=== PATIENT | female | born 1955 | race Caucasian/White ===

== ENCOUNTER → 2016-10-03 | Day surgery (SDC) | payer OTHER, MEDICARE ==
[~2016-10-03] VITALS: Ht 172.7 cm; Wt 95.3 kg
[~2016-10-03] MED LIST: ACETAMINOPHEN PO; AMOX-CLAV 500-1 EACH PO; AUGMENTIN 875875 MG PO; BACLOFEN10 M1 PO; CIPRO500 M1 PO; COLACE100 M1 PO; COUMADIN 2.5 M2.5 MG PO; COUMADIN 7.5 M7.5 MG PO; DOCUSATE SODIU100 MG PO; FLUOXETINE HCL40 M1 PO; LOVENOX 6060 MG/0.6 SC; MASON NATURAL2000 IU PO; MIRALAX17 GM PO; SENNA8.6 M3 PO; SENOKOT8.6 MG PO; TEGRETOL200 M1 PO; TIZANIDINE HCL2 MG PO; VITAMIN B-12500 MC2 PO; VITAMIN B12 PO; VITAMIN D35000 UNIT PO; WARFARIN SODIUM10 MG PO; WARFARIN SODIUM5 M1 PO; ZANAFLEX2 M2 PO; [UNRECOGNIZED DRUG - OTHER] PO
--- NOTE | 2016-10-03 12:46 | Operative Report ---
Operative/Inv Procedure Report Surgery Date: 10/03/16 Name of Procedure: Cystoscopy laser lithotripsy of very large bladder stone, or change of right double-J ureteral stent Pre-Operative Diagnosis: Right hydronephrosis and bladder stone Post-Operative Diagnosis: Same Estimated Blood Loss: scant Surgeon/Garage Door Opener Installer: Dami ASTORGA,CAMPOS Gallo Anesthesia: laryngeal mask airway Drains: 26 cm 6 Turkmen right double-J ureteral stent, 20 Turkmen Pratt Specimens: Urine culture and multiple bladder stone fragments Complications: None Condition: Fair Operative Indication: Right hydronephrosis and not a candidate for definitive surgery for removal of upper tract urinary stones Operative/Procedure Note Note: The patient was taken to the cystoscopy room and identified. She was placed in the supine position on the operating table. A timeout was executed appropriately with the patient awake. Gen. anesthesia was then induced via LMA. Due to severe lower extremity contractures it was very difficult to place her in a somewhat modified dorsal lithotomy position. She was prepped and draped in usual fashion for cystoscopy. Surgical pause was executed appropriately. Fluoroscopy images taken with a marker in the right side of the abdomen to confirm the correct side of surgery as well as the correct orientation of the fluoroscopy image. Under manual guidance 22 Turkmen cystoscope sheath was placed into the bladder. The large stone was seen on the distal coil of the ureteral stent. Using 1000 holmium laser fiber the stone was fragmented into multiple fragments. This was a fairly extensive procedure. The [employer] evacuator was used to remove all stone fragments from the bladder. A guidewire was then placed adjacent to the right ureteral stent up the level of the kidney. Using a grasper the right ureteral stent was removed. Open-ended catheter was placed over the wire and the wire removed. Some contrast was injected to outline the right renal collecting system. The guidewire was placed back through the open- ended catheter which was removed. Under visual fluoroscopic control a 26 cm 6 Turkmen right double-J ureteral stent was placed. Fluoroscopy confirmed the proximal and coiled in the kidney and the distal end coiled in the bladder. Pratt catheter was then placed. The patient tolerated the procedure well and as completion was taken to recovery room in stable condition. Findings: Right hydronephrosis and large bladder calculus Discharge Disposition: PACU
--- NOTE | 2016-10-03 17:15 | RADIOLOGY REPORT ---
EXAMINATION: XR KIDNEYS, URETER, BLADDER CLINICAL INDICATION: Right ureteral stent replacement. COMPARISON: 12/21/2015 TECHNIQUE: Fluoroscopic imaging of the abdomen was utilized by Dr. Andersen. 2 spot fluoroscopy images of the right abdomen are submitted into the electronic picture archive. FLUOROSCOPY TIME: 5.2 seconds FINDINGS: Please refer to the operative report. The right ureteral stent is in its expected position. IMPRESSION: Intraoperative fluoroscopic imaging of the abdomen was utilized.
== END ==
LOC: STS 05:29
DX: N21.0 Calculus in bladder (principal); N13.30 Unspecified hydronephrosis; G35 Multiple sclerosis; Z86.711 Personal history of pulmonary embolism; Z79.01 Long term (current) use of anticoagulants
CPT/HCPCS: 74000; 82355; 87086; 93005; 93010; C2617; J0690; J2250

== ENCOUNTER 2016-10-04 13:02 | Inpatient (IN) | payer OTHER, MEDICARE ==
[~2016-10-04] VITALS: Ht 172.7 cm; Wt 83.9 kg
[~2016-10-04 13:02] MED LIST changes: -AMOX-CLAV 500-1 EACH PO; -CIPRO500 M1 PO; -COLACE100 M1 PO; -SENNA8.6 M3 PO; -WARFARIN SODIUM5 M1 PO; -ZANAFLEX2 M2 PO
--- NOTE | 2016-10-04 13:11 | ED GENERAL ADULT ---
History of Present Illness General Chief Complaint: Nausea, Vomiting, Diarrhea Stated Complaint: BIBA N/V ? FEBRILE Source: patient, family Exam Limitations: poor historian Vital Signs & Intake/Output Vital Signs & Intake/Output Vital Signs Date Time Temp Pulse Resp B/P Pulse O2 O2 Flow FiO2 Ox Delivery Rate 10/04 1914 99.2 102 18 128/52 95 Nasal 4.0L Cannula 10/04 1759 100.0 10/04 1654 100.4 111 18 100/59 95 Nasal 4.0L Cannula 10/04 1616 101.1 113 22 97/54 96 Nasal 5.0L Cannula 10/04 1525 101.6 10/04 1506 101.6 125 20 100/74 94 10/04 1304 101.1 129 28 125/69 89 Nasal 5.0L Cannula Allergies Coded Allergies: No Known Allergies (09/27/16) Reconcile Medications Amoxicillin/Potassium Clav (Amox-Clav 500-125 MG Tablet) 500 MG-125 MG TABLET 1 TAB PO BID ANTIBIOTIC, INFECTION (Reported) Baclofen 10 MG TABLET 2 TAB PO TID MS (Reported) Carbamazepine (Tegretol) 200 MG TABLET 1 TAB PO 4 TIMES/DAY MS (Reported) Cholecalciferol (Vitamin D3) (Vitamin D3) 5,000 UNIT CAPSULE 1 CAP PO DAILY SUPPLEMENT (Reported) Cyanocobalamin (Vitamin B-12) (Vitamin B-12) 500 MCG TABLET 1 TAB PO DAILY SUPPLEMENT (Reported) Docusate Sodium (Colace) 100 MG CAPSULE 1 CAP PO TID CONSTIPATION (Reported) Fluoxetine HCl 40 MG CAPSULE 1 CAP PO QAM DEPRESSION (Reported) Sennosides (Senna) 8.6 MG TABLET 2 TAB PO BID CONSTIPATION (Reported) Tizanidine HCl (Zanaflex) 2 MG CAPSULE 1 TAB PO Q8 MS (Reported) Warfarin Sodium 5 MG TABLET 1-2 TAB PO 1700 BLOOD THINNER (Reported) Triage Nurses Notes Reviewed? yes Onset: Abrupt Duration: day(s): Timing: recent history HPI: 10/04/16 3 PM This is a 61-year-old female presents to the emergency department for fever and weakness and vomiting. She status post lithotripsy by Dr. Andersen yesterday. Now she presents with fever and lethargy. She has a past medical history of multiple sclerosis and she is unable to move her lower extremities. On physical exam her abdomen is soft and nontender, lungs reveal poor air entry. Labs were sent and IV fluids are given an IV Tylenol were given. I paged Dr. Andersen and discussed her case. Past History Travel History Traveled to [place] past 21 day No Medical History Any Pertinent Medical History? see below for history Neurological: multiple sclerosis EENT: NONE Cardiovascular: NONE Respiratory: pulmonary embolism Gastrointestinal: NONE Hepatic: NONE Renal: nephrolithiasis Musculoskeletal: NONE Psychiatric: depression Endocrine: NONE Blood Disorders: PE Cancer(s): NONE FIELD CAPTAIN/Reproductive: NONE Influenza Vaccine: 05/24/14 Surgical History Surgical History: lithotripsy Psychosocial History Who do you live with Spouse Services at Home Home Health Aide What is your primary language Kosovan Family History Family History, If Any: No Known Family History. Hx Contributory? No Review of Systems Review of Systems Constitutional: Reports: fever. EENTM: Reports: no symptoms. Respiratory: Denies: short of breath. Cardiovascular: Denies: chest pain. GI: Denies: abdominal pain. Genitourinary: Reports: see HPI. Musculoskeletal: Reports: see HPI. Skin: Denies: rash. Neurological/Psychological: Reports: weakness. Hematologic/Endocrine: Reports: no symptoms. Physical Exam Physical Exam General Appearance: awake, anxious, moderate distress Head: atraumatic, normal appearance Eyes: Bilateral: PERRL, EOMI. Ears, Nose, Throat: dry mucous membranes Neck: supple, full range of motion Respiratory: decreased breath sounds Cardiovascular: regular rate/rhythm Peripheral Pulses: 4+ radial (R), 4+ radial (L) Gastrointestinal: soft, non-tender Back: decreased range of motion Extremities: pedal edema, contractures lower extremities Neurologic/Psych: paralysis to the lower extremities Skin: intact, normal color, diaphoresis Core Measures ACS in differential dx? No CVA/TIA Diagnosis: No Severe Sepsis Present: No Septic Shock Present: No Progress Differential Diagnoses I considered the following diagnoses in my evaluation of the patient: [ Pyelonephritis, pneumonia, sepsis] Plan of Care: Orders Procedure Date/time Status Clear Liquid Diet 10/05 B Active Saline Lock 10/05 2035 Active Pathway - chart 10/05 2035 Active House Staff 10/05 2035 Active Patient Data 10/04 2018 Active ED Holding Orders 10/04 1818 Active Admit to inpatient 10/04 1816 Active Vital Signs 10/04 1816 Active Code Status 03/28 1817 Active Add-on Test (ER Only) 10/04 1525 Active CULTURE,URINE 10/04 1451 Active BLOOD CULTURE 10/04 1451 Active URINALYSIS 10/04 1451 Complete LACTIC ACID 10/04 1451 Complete COMPREHENSIVE METABOLIC PANEL 10/04 1451 Complete CBC WITHOUT DIFFERENTIAL 10/04 1451 Complete Intake & Output 10/04 1340 Active VTE Mechanical Prophylaxis 10/04 UNK Active Heat/Cold Therapy 10/04 UNK Active Current Medications Sig/Jonathan Start time Last Medication Dose Stop Time Status Admin Acetaminophen 650 MG Q6P PRN 10/04 2044 AC (Tylenol) Diphenhydramine HCl 25 MG Q6P PRN 10/04 2044 AC (Benadryl) Hydromorphone HCl 0.5 MG Q4P PRN 10/04 2044 AC (Dilaudid) Ondansetron HCl 4 MG Q6P PRN 10/04 2044 AC (Zofran) Oxycodone HCl 5 MG Q6H PRN 10/04 2044 AC (Roxicodone) Sodium Chloride 1,000 ML .Q6H40M 10/04 2044 AC (Normal Saline 0.9%) Laboratory Tests 10/04/16 1557: Urinalysis MOD H, Urine Color BROWN H, Urine Clarity TURBD H, Urine pH 6.0, Ur Specific [place] >= 1.030, Urine Protein >=300 H, Urine Ketones TRACE H, Urine Nitrite POS H, Urine Bilirubin NEG@ICTO, Urine Urobilinogen 0.2, Ur Leukocyte Esterase MOD H, Ur Microscopic SEDIMENT EXAMINED, Urine RBC 5-10 H, Urine WBC > 75 H, Ur Epithelial Cells FEW, Urine Bacteria MANY H, Urine Hemoglobin LARGE H, Urine Glucose NEG 10/04/16 1520: Anion Gap 11, Estimated GFR > 60, BUN/Creatinine Ratio 15.0, Glucose 151 H, Lactic Acid 1.3, Calcium 8.3 L, Total Bilirubin 0.6, AST 41 H, ALT 34, Alkaline Phosphatase 140 H, Total Protein 6.1 L, Albumin 3.4 L, Globulin 2.7, Albumin/Globulin Ratio 1.3, CBC w Diff NO MAN DIFF REQ, RBC 4.48, MCV 84.3, MCH 27.7, RDW 14.3, MPV 7.4, Gran % 89.6 H, Lymphocytes % 3.5 L, Monocytes % 6.5, Eosinophils % 0.1, Basophils % 0.3, Absolute Granulocytes 14.3 H, Absolute Lymphocytes 0.6 L, Absolute Monocytes 1.0 H, Absolute Eosinophils 0, Absolute Basophils 0.1, PUBS MCHC 32.9 L Microbiology 10/04 1557 URINE ROUT: Urine Culture - RECD 10/04 1525 BLOOD: Blood Culture - RECD 10/04 1520 BLOOD: Blood Culture - RECD Initial ED EKG: none Departure Departure Disposition: STILL A PATIENT Condition: Stable Clinical Impression Primary Impression: Pyelonephritis Referrals: SERVANDO SHOEMAKER MD (PCP/Family) Departure Forms: Customer Survey General Discharge Information Comments The patient's labs revealed leukocytosis, she has fever and pyuria-she was admitted to the hospital for pyelonephritis. She received IV fluids and IV Rocephin. Admission Note Spoke With: VIKY MAURICE MD Documentation of Exam: Documentation of any treatments & extenuating circumstances including Concerns Regarding Discharge (functional status, medication knowledge or non-compliance, living conditions, etc.) that warrant an admission rather than observation: [The patient needs admission for IV antibiotics, IV fluids, urology consultation. I spoke with Ganesh Dong; he will see the patient in the morning IV Rocephin was given] Critical Care Note Critical Care Note Critical Care Time: non-applicable
[2016-10-04] MEDS ORDERED: ZANAFLEX2 M2 PO (14:01)
[2016-10-04] MEDS ORDERED: WARFARIN SODIUM5 M1 PO (14:03)
[2016-10-04] MEDS ORDERED: AMOX-CLAV 500-1 EACH PO (14:03)
[2016-10-04] MEDS ORDERED: COLACE100 M1 PO (14:05)
[2016-10-04] MEDS ORDERED: SENNA8.6 M3 PO (14:05)
--- NOTE | 2016-10-04 15:10 | NUR ---
PT BIBO, A&OX3, ON 5L NC, TACHYCARDIC 120, FEBRILE 101.2, TACHIPNIC 28 RR. PT HAS MS AND LEGS WILL NOT STRAIGHTED. CC N,V, FEBRILE, S/P KIDNEY STENT AND STONE REMOVAL, SURGICAL SARMIENTO STILL IN PLACE. OUTPUT IS ORANGE IN COLOR AND VERY SEDEMENTED. *NOTE BY SUSANNAH KRAUSE
--- NOTE | 2016-10-04 15:29 | NUR ---
PT NOTED TO BE VERY WARM TO TOUCH AND TEMP 101.6 UPON INTRODUCING SELF TO PATIENT. NO ACTIVE VOMITING, STATES LAST VOMITED YESTERDAY AND BM YESTERDAY AN NORMAL. LIPS DRY AND MUCOUS MEMBRANES DRY. DENIES PAIN. APPEARS STIFF AND CONTRACTED WITH HX MS. SINUS TACH 120'S ON CM, DENIES CHEST PAIN OR SOB. TACHYPNIC ON ARRIVAL, O2 SAT 90% ROOM AIR FOR THIS RN AND IMPROVED TO 95% 4LNC. DRY NONPRODUCTIVE NOTED. AAOX3. 18G IV ESTABLISHED ON THIS RN ARRIVAL, LABS DRAWN AND SENT (BLUE, SST X2, LAV, ELENA, PINK) AND CULTURES X1 SET. SECOND SET BY SUSANNAH KRAUSE.
[2016-10-04 15:35] LABS: ABSOLUTE BASOPHIL COUNT 0.1 /CUMM (0.0-0.2); ABSOLUTE EOSINOPHIL COUNT 0 /CUMM (0.0-0.7); ABSOLUTE GRANULOCYTE CT 14.3 /CUMM (1.4-6.5); ABSOLUTE LYMPH COUNT 0.6 /CUMM (1.2-3.4); BASOPHIL % 0.3 % (0.0-2.0); EOSINOPHIL % 0.1 % (0-5); HEMATOCRIT 37.8 % (37-47); MEAN CORPUSCULAR HGB 27.7 PG (27.0-31.0); MEAN CORPUSCULAR HGB CONC 32.9 G/DL (33.0-37.0); MEAN CORPUSCULAR VOLUME 84.3 FL (81.0-99.0); MEAN PLATELET VOLUME 7.4 FL (7.4-10.4); PLATELET COUNT 262 /CUMM (130-400); RBC DISTRIBUTION WIDTH 14.3 % (11.5-14.5); RED BLOOD CELL CT 4.48 /CUMM (4.20-5.40); WHITE BLOOD CELL COUNT 15.9 /CUMM (4.8-10.8)
[2016-10-04 15:46] LABS: GRANULOCYTE % 89.6 % (42.2-75.2)
--- NOTE | 2016-10-04 16:01 | NUR ---
SARMIENTO CATH PLACED YESTERDAY PER PATIENT. STERILE SAMPLE OBTAINED FROM PROXIMAL PORT AND TRIO SENT TO LAB. BAG EMPTIED OF 450ML CLOUDY BROWN URINE WITH PUS OBSERVED. REPEAT TEMP 100.9 AT THIS TIME
--- NOTE | 2016-10-04 16:05 | RADIOLOGY REPORT ---
EXAMINATION: XR PORTABLE CHEST CLINICAL INFORMATION: Fever with question of pneumonia. COMPARISON: 09/18/2014 TECHNIQUE: Portable AP view of the chest was obtained. FINDINGS: Once again seen is chronic elevation of the right hemidiaphragm with associated atelectasis or scarring at the right lung base. No gross consolidation or effusion is seen. IMPRESSION: No acute intrathoracic disease. Chronically elevated right hemidiaphragm with associated right basilar atelectasis.
--- NOTE | 2016-10-04 16:19 | NUR ---
BP 97/54 AND SECOND BOLUS RUNNING PIGGYBACK PER ORDER BY DR PICHARDO. PT CONTINUES TO MENTATE APPROPRIATELY. SPOUSE AT BEDSIDE
--- NOTE | 2016-10-04 16:39 | CT SCAN REPORT ---
EXAMINATION: CT ABDOMEN AND PELVIS WITHOUT CONTRAST CLINICAL INFORMATION: Fever status post lithotripsy. COMPARISON: CT abdomen and pelvis 09/18/2014. TECHNIQUE: Multidetector volumetric imaging was performed from the superior aspect of the liver through the pubic symphysis. Sagittal and coronal reformatted images were obtained on the technologist's workstation. DLP: 855.91 mGy-cm FINDINGS: CHEST: There is bibasilar atelectasis. Study is a bit limited by motion artifact. There is a 4.8 mm nodule in the left lower lobe (see image 71 of 792). This is unchanged when compared to the exam of just over 2 years ago. There is another ground-glass density seen in the left lower lobe that measures about 6 mm (see image 159 of 792). This was not seen with certainty at the time of the prior study. No pleural effusions are seen. ABDOMEN AND PELVIS: The liver, gallbladder, spleen, pancreas and bile ducts appear normal on this noncontrast enhanced scan. Multiple stones are noted in the right kidney. These represent fragments from what had been a large staghorn type pelvic calculus. An internally dwelling double-J stent is present with one tip in the bladder and the other in the mid pole calyx on the right. There is some perinephric stranding probably from the patient's lithotripsy including some stranding around the more proximal ureter. Pratt catheter is present in the decompressed bladder. No calculi are seen in the left kidney. No retroperitoneal adenopathy is seen. No free fluid is present. Of note, there is massive fecal impaction with a massively dilated sigmoid measuring 12 cm across. Even though the diameter across the sigmoid was more in September 2014, the degree of feces distending the rectum appears increased. There is no bowel obstruction proximal to this. No free intraperitoneal fluid is present. The abdominal wall shows no evidence of hernia. Thoracolumbar scoliosis is present. Sclerotic density in the left hemisacrum could be secondary to old healed insufficiency fracture. This has been present previously. IMPRESSION: 1. Fragmentation of right pelvic calculus now with multiple fragments an indwelling double-J ureteral stent which appears to be in good position. 2. Massive fecal impaction with marked distention of rectum. 3. One pulmonary nodule has been stable for at least 2 years. 4. Small ground-glass opacity as described above.
--- NOTE | 2016-10-04 16:57 | NUR ---
BP IMPROVED 100/59 AND HR REMAINS SINUS TACH 110'S. TEMP 100.4 AND REPORTS FEELING LESS HOT. NO ACTIVE N/V AT THIS TIME. LIGHTS DIMMED FOR COMFORT. FLUID BOLUSES COMPLETE AND APPROX 20ML DARK URINE OUTPUT OBSERVED TO GUILLERMINA
--- NOTE | 2016-10-04 17:34 | NUR ---
DR PICHARDO AT BEDSIDE TO DISCUSS UTI AND PLAN FOR ADMISSION AND TX WITH IV ANTIBIOTICS.
--- NOTE | 2016-10-04 17:40 | NUR ---
PT MEDICATED WITH ROCEPHIN PER eMAR
--- NOTE | 2016-10-04 19:13 | NUR ---
BP IMPROVED TO 128/52 AND REMAINS FREE OF PAIN. 99.2 TEMP IMPROVEMENT. REMAINS AAOX3 AND ABLE TO FOLLOW COMMANDS. AWAITING BED ASSIGNMENT AND ADMISSION, INFORMED WAITING PROVIDED.
--- NOTE | 2016-10-04 20:29 | History & Physical ---
ALESSANDRA ESTRELLA 10/04/162028: General Information and HPI MD Statement: I have seen and personally examined BIRGIT JARAMILLO and documented this H&P. The patient is a 61 year old F who presented with a patient stated chief complaint of fever, weakness, lethargic, nausea and vomiting. Source of Information: patient, family, old records Exam Limitations: no limitations History of Present Illness: This is a 61-year-old female with past medical history significant for urinary tract infections culturing Escherichia coli, gram-negative rods, Pseudomonas, pulmonary embolus 3 years ago on anticoagulation warfarin, pneumonia, multiple sclerosis, left sided hydroureteronephrosis in the past, right-sided hydronephrosis status post stent placed, the right renal UPJ calculus with obstruction, depression, constipation presented to the emergency department this evening with chief complaint of fever, weakness, lethargy, nausea, vomiting since last night. According to the patient, She underwent lithotripsy and right sided ureteral stent placement by Dr. Myles Cortes yesterday. She was sent home on oral antibiotic amoxicillin clavulanic acid. She was placed on catheter and was advised to come after 3 days to the clinic. She reports fever associated with weakness and lethargic since last night. Also reports nausea and vomiting. She vomited almost 10 times, yellow and bilious, nonbloody. She denied any flank pain, abdominal pain or discomfort. She denied any blood in urine. Denied any frequency, urgency, painful urination, nocturia. In the emergency department she had a MAXIMUM TEMPERATURE of 101.6F, was tachycardic blood pressure dropped down to 97/54. She was given 3 L of normal saline bolus in the emergency department itself. Her oxygen saturation is 94% on 4 L of oxygen via nasal cannula. She did desaturate as low as 89% at 1 PM earlier in the day. She denied any chest pain, shortness of breath, racing of heart, cough, abdominal pain, discomfort, headache, weakness or sensory changes. She takes Colace and senna for her constipation. Offnote patient has multiple sclerosis not on any medications for multiple sclerosis and has not been following her doctor lately. She has been using muscle relaxants for her multiple sclerosis. Denies smoking, alcohol intake, illicit drug abuse. Allergies/Medications Allergies: Coded Allergies: No Known Allergies (03/21/17) Home Med list Amoxicillin/Potassium Clav (Amox-Clav 500-125 MG Tablet) 500 MG-125 MG TABLET 1 TAB PO BID ANTIBIOTIC, INFECTION (Reported) Baclofen 10 MG TABLET 2 TAB PO TID MS (Reported) Carbamazepine (Tegretol) 200 MG TABLET 1 TAB PO 4 TIMES/DAY MS (Reported) Cholecalciferol (Vitamin D3) (Vitamin D3) 5,000 UNIT CAPSULE 1 CAP PO DAILY SUPPLEMENT (Reported) Cyanocobalamin (Vitamin B-12) (Vitamin B-12) 500 MCG TABLET 1 TAB PO DAILY SUPPLEMENT (Reported) Docusate Sodium (Colace) 100 MG CAPSULE 1 CAP PO TID CONSTIPATION (Reported) Fluoxetine HCl 40 MG CAPSULE 1 CAP PO QAM DEPRESSION (Reported) Sennosides (Senna) 8.6 MG TABLET 2 TAB PO BID CONSTIPATION (Reported) Tizanidine HCl (Zanaflex) 2 MG CAPSULE 1 TAB PO Q8 MS (Reported) Warfarin Sodium 5 MG TABLET 1-2 TAB PO 1700 BLOOD THINNER (Reported) Compliance With Home Meds: GOOD Past History Travel History Traveled to [place] past 21 day No Medical History Neurological: multiple sclerosis EENT: NONE Cardiovascular: NONE Respiratory: pulmonary embolism Gastrointestinal: NONE Hepatic: NONE Renal: nephrolithiasis Musculoskeletal: NONE Psychiatric: depression Endocrine: NONE Blood Disorders: PE Cancer(s): NONE 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 Psychosocial History Services at Home: Home Health Aide Smoking Status: Never Smoked ETOH Use: denies use Illicit Drug Use: denies illicit drug use Review of Systems Review of Systems Constitutional: Reports: chills, fever, weakness. EENTM: Denies: no symptoms. Cardiovascular: Denies: no symptoms, chest pain, edema, orthopena, palpitations. Respiratory: Denies: cough, hemoptysis, orthopnea, short of breath, sputum production. GI: Reports: constipation, nausea, vomiting. Denies: abdominal pain. Genitourinary: Denies: dysuria, frequency, hematuria, nocturia. Musculoskeletal: Denies: back pain, joint pain. Skin: Denies: no symptoms. Neurological/Psychological: Reports: depressed. Denies: anxiety, emotional problems, headache, numbness, tingling, tremors. Exam & Diagnostic Data Last 24 Hrs of Vital Signs/I&O Vital Signs Date Time Temp Pulse Resp B/P Pulse O2 O2 Flow FiO2 Ox Delivery Rate 10/04 2231 97.9 128 20 132/90 94 Nasal 4.0L Cannula 10/04 2205 Nasal 4.0L Cannula 10/04 1914 99.2 102 18 128/52 95 Nasal 4.0L Cannula 10/04 1759 100.0 10/04 1654 100.4 111 18 100/59 95 Nasal 4.0L Cannula 10/04 1616 101.1 113 22 97/54 96 Nasal 5.0L Cannula 10/04 1525 101.6 10/04 1506 101.6 125 20 100/74 94 10/04 1304 101.1 129 28 125/69 89 Nasal 5.0L Cannula Intake & Output 10/05 0800 10/05 0000 10/04 1600 Intake Total 2250 Output Total 450 330 Balance 1800 -330 Intake, IV 2150 Intake, Oral 100 Number 1 Bowel Movements Output, 5 Emesis Output, Urine 450 325 Patient 83.915 kg 72.575 kg Weight Physical Exam General Appearance Alert, Oriented X3, Cooperative, No Acute Distress Skin No Rashes, No Breakdown HEENT Atraumatic, PERRLA, EOMI, Mucous Membr. moist/pink Neck Supple, No JVD Lymphatic Axillary nl, Cervical nl Cardiovascular Regular Rate, Normal S1, Normal S2 Lungs Normal Air Movement Abdomen Normal Bowel Sounds, Soft, No Tenderness Neurological Normal Speech, Strength at 5/5 X4 Ext, Normal Tone, Sensation Intact, Cranial Nerves 3-12 NL Extremities No Clubbing, No Cyanosis, No Edema, Normal Pulses, No Tenderness/ Swelling Vascular Normal Pulses Last 24 Hrs of Labs/Sea: Laboratory Tests 10/04/16 2315: PT 19.9 H, INR 1.91 H 10/04/16 1557: Urinalysis MOD H, Urine Color BROWN H, Urine Clarity TURBD H, Urine pH 6.0, Ur Specific [place] >= 1.030, Urine Protein >=300 H, Urine Ketones TRACE H, Urine Nitrite POS H, Urine Bilirubin NEG@ICTO, Urine Urobilinogen 0.2, Ur Leukocyte Esterase MOD H, Ur Microscopic SEDIMENT EXAMINED, Urine RBC 5-10 H, Urine WBC > 75 H, Ur Epithelial Cells FEW, Urine Bacteria MANY H, Urine Hemoglobin LARGE H, Urine Glucose NEG 10/04/16 1520: Anion Gap 11, Estimated GFR > 60, BUN/Creatinine Ratio 15.0, Glucose 151 H, Lactic Acid 1.3, Calcium 8.3 L, Total Bilirubin 0.6, AST 41 H, ALT 34, Alkaline Phosphatase 140 H, Total Protein 6.1 L, Albumin 3.4 L, Globulin 2.7, Albumin/Globulin Ratio 1.3, CBC w Diff NO MAN DIFF REQ, RBC 4.48, MCV 84.3, MCH 27.7, RDW 14.3, MPV 7.4, Gran % 89.6 H, Lymphocytes % 3.5 L, Monocytes % 6.5, Eosinophils % 0.1, Basophils % 0.3, Absolute Granulocytes 14.3 H, Absolute Lymphocytes 0.6 L, Absolute Monocytes 1.0 H, Absolute Eosinophils 0, Absolute Basophils 0.1, PUBS MCHC 32.9 L Microbiology 10/04 1557 URINE ROUT: Urine Culture - RECD 10/04 1525 BLOOD: Blood Culture - RECD 10/04 1520 BLOOD: Blood Culture - RECD Diagnostic Data CXR Results normal Assessment/Plan Assessment: This is a 61-year-old female with past medical history significant for urinary tract infections culturing Escherichia coli, gram-negative rods, Pseudomonas, pulmonary embolus 3 years ago on anticoagulation warfarin, pneumonia, multiple sclerosis, left sided hydroureteronephrosis in the past, right-sided hydronephrosis status post stent placed, the right renal UPJ calculus with obstruction, depression, constipation presented to the emergency department this evening with chief complaint of fever, weakness, lethargy, nausea, vomiting since last night. According to the patient, She underwent lithotripsy and right sided ureteral stent placement by Dr. Myles Cortes yesterday. She was sent home on oral antibiotic amoxicillin clavulanic acid. She was placed on catheter and was advised to come after 3 days to the clinic. Vitals in the emergency room-febrile 101.1, tachycardic 111, respiratory rate 18 , blood pressure 100/15, saturating 95% on 4 L oxygen. Leukocytosis 15.9, potassium 3.2. Urine analysis positive for nitrites and esterase us. Pyuria and bacteriuria. WBC greater than 35. CAT scan abdomen IMPRESSION: 1. Fragmentation of right pelvic calculus now with multiple fragments an indwelling double-J ureteral stent which appears to be in good position. 2. Massive fecal impaction with marked distention of rectum. 3. One pulmonary nodule has been stable for at least 2 years. 4. Small ground-glass opacity as described above. chest x-ray normal In the emergency department she had a MAXIMUM TEMPERATURE of 101.6F, was tachycardic blood pressure dropped down to 97/54. She was given 3 L of normal saline bolus in the emergency department itself. Her oxygen saturation is 94% on 4 L of oxygen via nasal cannula. She did desaturate as low as 89% at 1 PM earlier in the day. Problem list 1. Acute pyelonephritis 2. Sepsis 3. Multiple sclerosis 4. Pulmonary embolus on anticoagulants 5. Fecal impaction 6. Right-sided hydronephrosis status post stent placed 7. Depression Acute pyelonephritis Patient presented with sudden onset of fever, chills, nausea, vomiting, weakness and lethargic for one day. She is status post lithotripsy and right-sided ureteral stent placement. Urine analysis positive for nitrates, stress, pyuria and bacteriuria. CAT scan findings suggestive of Fragmentation of right pelvic calculus now with multiple fragments an indwelling double-J ureteral stent which appears to be in good position. Found to be septic on admission. Febrile, tachycardic and the source of infection is urine. * Admission to general medicine floor. * Monitor vitals every shift. * Maintain oxygen saturation above 90%. * Monitor blood pressure closely. * IV fluids-normal saline. * IV antibiotics-ceftazidine. * Blood cultures * Urine culture and sensitivities. * We'll continue Foleys catheter * Urology consult. Sepsis Patient fulfilled SIRS criteria on admission-fever and tachycardia, leukocytosis on admission. Source of infection found to be urine. Urine positive for nitrates, esterase us , bacteria, WBC greater than 75. * Admission to general medicine floor. * Monitor vitals every shift. * Maintain oxygen saturation above 90%. * Monitor blood pressure closely. * IV fluids-normal saline. * IV antibiotics-ceftazidine. * Blood cultures * Urine culture and sensitivities. Pulmonary embolism Patient was diagnosed with pulmonary embolism 3 years ago. She was on Coumadin 5 mg. * We will continue Coumadin * Dose of Coumadin according to INR * Will check coags Multiple sclerosis She was diagnosed with multiple sclerosis 10 years ago. She couldn't walk. She has not been following neurologist for a while. She stopped Multiple sclerosis medications. * Continue Tegretol, baclofen, zanaflex. Depression * Continue fluoxetine Constipation CAT scan abdomen showed Massive fecal impaction with marked distention of rectum. * Patient takes Colace and senna at home for constipation * Dulcolax suppository * Monitor closely for bowel movements DVT prophylaxis-alps DNR/DNI liquid diet Pain medication if necessary As Ranked By This Provider Problem List: 1. Nausea & vomiting 2. Multiple sclerosis 3. Hydronephrosis 4. Hx pulmonary embolism 5. Fecal impaction of rectum 6. Pyelonephritis Core Measures/Miscellaneous Acute Coronary Syndrome ACS Diagnosis: No Cerebrovascular Accident CVA/TIA Diagnosis: No Congestive Heart Failure CHF Diagnosis: No Venous Thromboembolism VTE Risk Factors: Acute medical illness, Age > 40, Immobility, paresis No [facility] VTE prophylaxis d/t: No contraindications No VTE Pharm Prophylaxis d/t: No contraindications VTE Diagnosis: No VTE Type: NONE VTE Confirmed by (Test): NONE Severe Sepsis Severe Sepsis Present: Yes BC x2: Yes Lactic Acid x2: Yes IV ABX Broad Spectrum: Yes NS/LR Started: Yes Septic Shock Septic Shock Present: No Miscellaneous Documentation Attending Case Discussed With: VIKY MAURICE MD Primary Care Physician: NAVID ASTORGA,SERVANDO Rojas Patient sees these Specialists none Level of Patient Care: General Medicine JOMAR ASTORGA,FAN 10/04/16 2354: Resident Review Statement Resident Statement: examined this patient, discussed with healthcare administration internship, agreed with healthcare administration internship, discussed with family, reviewed EMR data (avail), discussed with nursing , discussed with case mgmt, reviewed images, amended to note Other Findings: Birgit is 61-year-old woman with a history of urinary tract infections culturing Escherichia coli and Pseudomonas by this is sensitive), right renal UPJ calculus with obstruction, pulmonary embolus 3 years ago anticoagulation with warfarin, pneumonia, multiple sclerosis who presents to the emergency department with fever and weakness and vomiting. She underwent lithotripsy by Dr. Myles Cortes yesterday and has continued fever and lethargy. In the emergency department she had a MAXIMUM TEMPERATURE of 101.6F, was tachycardic blood pressure dropped down to 97/54. She was given 3 L of normal saline bolus in the emergency department itself. Her oxygen saturation is 94% on 4 L of oxygen via nasal cannula. She did desaturate as low as 89% at 1 PM earlier in the day. The patient does have an elevated white count, high-grade fever as well as a positive urine suggestive of urinary tract infection. Imaging reveals a multiple fragmented stones an indwelling double-J ureteral stent. Suspect pyelonephritis. Because she has grown Pseudomonas in the past she should be covered appropriately with antibiotics until organism is identified and sensitivities come back. - {Problems} - Pyelonephritis Sepsis Pulmonary Embolus on AC Fecal impaction Multiple Sclerosis - {Plan} - IVF resuscitation 30cc/kg Ceftazidine 1g iv q8h Await blood and urine cx and sensititivies Continue barton catheter, consider change pending urology evaluation Urology consultation Check Coags Dose Coumadin pending INR Continue Tegretol, baclofen, zanaflex Dulcolax suppository now; Massive fecal impaction with marked distention of rectum Consider Gi consultation if she is not having bowel movements. DVT ppx ALPS, await INR (pt on coumadin) DNR/DNI VIKY MAURICE 10/05/16 0501: Attending MD Review Statement Attending Statement Attending MD Statement: examined this patient, discuss w/resident/PA/MANAGER PLANNING, agreed w/resident/PA/MANAGER PLANNING, discussed with family, reviewed EMR data (avail), reviewed images, amended to note Attending Assessment/Plan: Cc: Nausea vomiting PMH: MS not on treatment, paraparesis, bedbound, PE 4 years back on warfarin, recurrent nephrolithiasis Patient underwent laser lithotripsy and replacement of double J stent right ureter, on October 03. After going home patient started to feel fever, chills, nausea, vomiting, persisted this morning so came to ER. Patient was started on by mouth Augmentin before the procedure, on Barton's catheter after the procedure. Patient does not have sensation of both bowel and bladder, has bowel movement once a week, on diaper, mostly bedbound. Patient often chokes on her food. Vitals: T max 101.6, tachycardic, tachypneic, be. Presentation 125/65 drop to 97 /54, improved with hydration. Saturating 96% on 4 L. On exam: A O 3, neck supple, no JVD, no lymphadenopathy, mucosa dry, paraparesis, bilateral upper extremity increased tone , power 3+/ 5, cranial nerves intact, squint on the right side. no dependent edema, CVS: S1-S2, RRR. RS: Diffuse wheezing bilaterally. Abdomen: Soft, NT, ND, bowel sounds present, no CVA tenderness. No obvious skin inflammation or rash. Labs: WBC 15.9, neutrophils 89%, potassium 3.9, calcium 8.3, lactate 1.3, AST 41 , alkaline phosphatase 140, albumin 3.4, UA suggestive of UTI CXR:No acute intrathoracic disease. Chronically elevated right hemidiaphragm with associated right basilar atelectasis. CT abdomen and pelvis without IV contrast: 1. Fragmentation of right pelvic calculus now with multiple fragments an indwelling double-J ureteral stent which appears to be in good position. 2. Massive fecal impaction with marked distention of rectum. 3. One pulmonary nodule has been stable for at least 2 years. 4. Small ground-glass opacity as described above. A and P #1 right pyelonephritis s/p procedure, multiple renal stones, leukocytosis, significant fever, and transiently hypotensive, responded to fluids. Lactate 1.3. In the past patient had Pseudomonas and urine culture, continue ceftazidine IV, blood culture, urine culture, continue IV fluids and 100-150 mL per hour, inform urology about patient being in hospital. #2 patient had massive fecal impaction on CT findings: Patient gets once weekly bowel movement according to . Dulcolax suppository tonight, follow up for bowel movement, if no success call surgical consult tomorrow morning for disimpaction. #3 patient on warfarin for history of pulmonary embolism: Continue her home doses of warfarin, check INR. #4 patient has history of long-standing MS, not on any treatment currently except muscle relaxants, patient bedbound, frequent turning, no obvious pressure ulcers at this point.
--- NOTE | 2016-10-04 20:36 | NUR ---
PT REQUESTING APPLE JUICE, PROVIDED WITH STRAW, TOLERATING WELL.
--- NOTE | 2016-10-04 20:45 | NUR ---
HOUSE STAFF AT BEDSIDE
--- NOTE | 2016-10-04 21:09 | NUR ---
PT MEDICATED WITH 1G FORTAZ PER EMAR
--- NOTE | 2016-10-04 21:17 | NUR ---
BED ASSIGNMENT 219-01
--- NOTE | 2016-10-04 21:37 | NUR ---
REPORT GIVEN TO SUSANNAH LOW
--- NOTE | 2016-10-04 21:38 | NUR ---
[facility] CALLED FOR TRANSPORT
--- NOTE | 2016-10-04 21:58 | NUR ---
[facility] CALLED FOR UPDATE ON TRANSPORT
--- NOTE | 2016-10-04 22:05 | NUR ---
PT ADMITTED TO ROOM 219-01 FROM THE ER AT 2205. PT ALERT AND OREINTED TO PERSON AND PLACE BUT NOT TO TIME, PT TACHY, ON 4LNC, PT DENIES PAIN, N/V, CP, SOB, PT SKIN INTACT, SARMIENTO DRAINING CLOUDY, DARK URINE, ORIENTED TO ROOM AND CALL LOPEZ, WILL CONT TO MONITOR
[2016-10-04 22:31] VITALS: BP 132/90
[2016-10-04 23:52] LABS: PT 19.9 SEC (9.4-12.5)
--- NOTE | 2016-10-05 05:02 | Admission Certification ---
Admission Certification Certification Statement - As attending physician, I certify that at the time of - admission, based on clinical presentation, severity of - symptoms, need for further diagnostic testing and - therapeutic interventions, and risk of adverse outcomes - without in-hospital treatment, in my clinical assessment, - this patient requires an acute hospital stay for a minimum - of two nights or longer. I have also considered psychsocial - factors such as support system, advanced age, financial - issues, cognitive issues, and failed out-patient treatments, - past re-admission history, safety of patient, and lack of - compliance as applicable. Specific rationale supporting this admission is: Pyelonephritis
[2016-10-05 07:35] VITALS: BP 130/78
--- NOTE | 2016-10-05 07:44 | Cons- Urology ---
General Information and HPI Consulting Request Date of Consult: 10/05/16 Requested By: VIKY Arriaga MD Reason for Consult: urosepsis Source of Information: family, old records Exam Limitations: physical impairment History of Present Illness: 61 year old female with significant MS. She has R renal stones which are managed with an indwelling R ureteral stent changed periodically. Due to physical condition unable to get pre op urine culture. On 10/03/26 she underwent cysto and laser litho of a large stone encrusted on the distal coil of the R ureteral stent. The R ureteral stent was also changed. She returned to the hospital yesterday with fever, weakness and vomiting. Urine culture from time of procedure is growing gram neg rods. On admission she was started on Fortaz and is improved. Allergies/Medications Allergies: Coded Allergies: No Known Allergies (09/27/16) Home Med List: Amoxicillin/Potassium Clav (Amox-Clav 500-125 MG Tablet) 500 MG-125 MG TABLET 1 TAB PO BID ANTIBIOTIC, INFECTION (Reported) Baclofen 10 MG TABLET 2 TAB PO TID MS (Reported) Carbamazepine (Tegretol) 200 MG TABLET 1 TAB PO 4 TIMES/DAY MS (Reported) Cholecalciferol (Vitamin D3) (Vitamin D3) 5,000 UNIT CAPSULE 1 CAP PO DAILY SUPPLEMENT (Reported) Cyanocobalamin (Vitamin B-12) (Vitamin B-12) 500 MCG TABLET 1 TAB PO DAILY SUPPLEMENT (Reported) Docusate Sodium (Colace) 100 MG CAPSULE 1 CAP PO TID CONSTIPATION (Reported) Fluoxetine HCl 40 MG CAPSULE 1 CAP PO QAM DEPRESSION (Reported) Sennosides (Senna) 8.6 MG TABLET 2 TAB PO BID CONSTIPATION (Reported) Tizanidine HCl (Zanaflex) 2 MG CAPSULE 1 TAB PO Q8 MS (Reported) Warfarin Sodium 5 MG TABLET 1-2 TAB PO 1700 BLOOD THINNER (Reported) Current Medications: Current Medications Sig/Jonathan Start time Last Medication Dose Route Stop Time Status Admin Acetaminophen 650 MG Q6P PRN 10/04 2045 AC PO Acetaminophen 0 .STK-MED ONE 10/04 1528 DC IV Acetaminophen 1,000 MG ONCE ONE 10/04 1500 DC 10/04 IV 10/04 1501 1525 Baclofen 20 MG TID 10/04 2200 AC 10/05 PO 0027 Bisacodyl 10 MG ONCE ONE 10/04 2245 DC 10/05 IN 10/04 2246 0108 Carbamazepine 200 MG 4 TIMES/DAY 10/04 2200 AC 10/05 PO 0027 Ceftazidime 0 .STK-MED ONE 10/04 210 DC .ROUTE Ceftazidime 1,000 MG IQ8 10/04 2045 AC 10/04 IV 2107 Ceftriaxone Sodium 1,000 MG ONCE ONE 10/04 1745 DC 10/04 IV 10/04 1746 1732 Ceftriaxone Sodium 0 .STK-MED ONE 10/04 1728 DC .ROUTE Cyanocobalamin 500 MCG DAILY 10/05 1000 AC PO Diphenhydramine HCl 25 MG Q6P PRN 10/04 204 AC IV Docusate Sodium 100 MG TID 10/04 2200 AC 10/05 PO 0027 Fluoxetine HCl 40 MG DAILY 10/05 1000 AC PO Hydromorphone HCl 0.5 MG Q4P PRN 10/04 204 AC IV Ondansetron HCl 4 MG Q6P PRN 10/04 204 AC IV Oxycodone HCl 5 MG Q6H PRN 10/04 204 AC PO Senna/Docusate Sodium 1 TAB BID PRN 10/04 2200 AC PO Sodium Chloride 1,000 ML .Q10H 10/04 2245 AC 10/05 IV 10/05 1844 0027 Sodium Chloride 1,000 ML .Q6H40M 10/04 2045 DC 10/04 IV 2228 Sodium Chloride 1,000 ML BOLUS ONE 10/04 1845 DC 10/04 IV 10/04 2044 1913 Sodium Chloride 1,000 ML BOLUS ONE 10/04 1745 DC 10/04 IV 10/04 1844 1732 Sodium Chloride 1,000 ML BOLUS ONE 10/04 1500 DC 10/04 IV 10/04 1659 1525 Tizanidine HCl 2 MG Q8 10/04 2200 AC 10/05 PO 0639 Past History Medical History Blood Transfusion Hx: No Neurological: multiple sclerosis EENT: NONE Cardiovascular: NONE Respiratory: pulmonary embolism Gastrointestinal: NONE Hepatic: NONE Renal: nephrolithiasis Musculoskeletal: NONE Psychiatric: depression Endocrine: NONE Blood Disorders: PE 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 Psychosocial History Where Do You Live? Home Services at Home: Home Health Aide Smoking Status: Never Smoked ETOH Use: denies use Illicit Drug Use: denies illicit drug use Exam & Diagnostic Data Vital Signs and I&O Vital Signs Date Time Temp Pulse Resp B/P Pulse O2 O2 Flow FiO2 Ox Delivery Rate 10/05 0735 98.7 111 20 130/78 96 Nasal 4.0L Cannula 10/05 0450 104 10/05 0000 Nasal 4.0L Cannula 10/04 2231 97.9 128 20 132/90 94 Nasal 4.0L Cannula 10/04 2205 Nasal 4.0L Cannula 10/04 1914 99.2 102 18 128/52 95 Nasal 4.0L Cannula 10/04 1759 100.0 10/04 1654 100.4 111 18 100/59 95 Nasal 4.0L Cannula 10/04 1616 101.1 113 22 97/54 96 Nasal 5.0L Cannula 10/04 1525 101.6 10/04 1506 101.6 125 20 100/74 94 10/04 1304 101.1 129 28 125/69 89 Nasal 5.0L Cannula Intake & Output 10/05 0800 10/05 0000 10/04 1600 10/04 0800 10/04 0000 10/03 1600 Intake Total 1280 2250 Output Total 600 450 330 Balance 680 1800 -330 Intake, IV 800 2150 Intake, Oral 480 100 Number 1 1 Bowel Movements Output, 5 Emesis Output, Urine 600 450 325 Patient 185 lb 160 lb Weight No acute distress Lying in bed Barton draining light tea-colored urine Laboratory Tests 10/05 10/04 10/04 0650 2315 1557 Chemistry Sodium Pending Potassium Pending Chloride Pending Carbon Dioxide Pending Anion Gap Pending BUN Pending Creatinine Pending BUN/Creatinine Ratio Pending Coagulation PT (9.4 - 12.5 SEC) Pending 19.9 H INR (0.90 - 1.19) Pending 1.91 H Hematology CBC w Diff Pending WBC Pending RBC Pending Hgb Pending Hct Pending MCV Pending MCH Pending RDW Pending Plt Count Pending MPV Pending PUBS MCHC Pending Urines Urinalysis MOD H Urine Color (YEL,AMB,STR) BROWN H Urine Clarity (CLEAR) TURBD H Urine pH (5.0 - 8.0) 6.0 Ur Specific [place] (1.001 - 1.035) >= 1.030 Urine Protein (NEG,<30 MG/DL) >=300 H Urine Ketones (NEG) TRACE H Urine Nitrite (NEG) POS H Urine Bilirubin (NEG) NEG@ICTO Urine Urobilinogen (0.1 - 1.0 EU/dl) 0.2 Ur Leukocyte Esterase (NEG) MOD H Ur Microscopic SEDIMENT EXAMINED Urine RBC (0 - 5 /HPF) 5-10 H Urine WBC (0 - 2 /HPF) > 75 H Ur Epithelial Cells (NONE,FEW) FEW Urine Bacteria (NEG/NONE) MANY H Urine Hemoglobin (NEG) LARGE H Urine Glucose (N MG/DL) NEG 10/04 1520 Chemistry Sodium (137 - 145 mmol/L) 137 Potassium (3.5 - 5.1 mmol/L) 3.2 L Chloride (98 - 107 mmol/L) 102 Carbon Dioxide (22 - 30 mmol/L) 24 Anion Gap (5 - 16) 11 BUN (7 - 17 mg/dL) 12 Creatinine (0.5 - 1.0 mg/dL) 0.8 Estimated GFR (>60 ml/min) > 60 BUN/Creatinine Ratio (7 - 25 %) 15.0 Glucose (65 - 99 mg/dL) 151 H Lactic Acid (0.7 - 2.1 mmol/L) 1.3 Calcium (8.4 - 10.2 mg/dL) 8.3 L Total Bilirubin (0.2 - 1.3 mg/dL) 0.6 AST (14 - 36 U/L) 41 H ALT (9 - 52 U/L) 34 Alkaline Phosphatase (<127 U/L) 140 H Total Protein (6.3 - 8.2 g/dL) 6.1 L Albumin (3.5 - 5.0 g/dL) 3.4 L Globulin (1.9 - 4.2 gm/dL) 2.7 Albumin/Globulin Ratio (1.1 - 2.2 %) 1.3 Hematology CBC w Diff NO MAN DIFF REQ WBC (4.8 - 10.8 /CUMM) 15.9 H RBC (4.20 - 5.40 /CUMM) 4.48 Hgb (12.0 - 16.0 G/DL) 12.4 Hct (37 - 47 %) 37.8 MCV (81.0 - 99.0 FL) 84.3 MCH (27.0 - 31.0 PG) 27.7 RDW (11.5 - 14.5 %) 14.3 Plt Count (130 - 400 /CUMM) 262 MPV (7.4 - 10.4 FL) 7.4 Gran % (42.2 - 75.2 %) 89.6 H Lymphocytes % (20.5 - 51.1 %) 3.5 L Monocytes % (1.7 - 9.3 %) 6.5 Eosinophils % (0 - 5 %) 0.1 Basophils % (0.0 - 2.0 %) 0.3 Absolute Granulocytes (1.4 - 6.5 /CUMM) 14.3 H Absolute Lymphocytes (1.2 - 3.4 /CUMM) 0.6 L Absolute Monocytes (0.10 - 0.60 /CUMM) 1.0 H Absolute Eosinophils (0.0 - 0.7 /CUMM) 0 Absolute Basophils (0.0 - 0.2 /CUMM) 0.1 PUBS MCHC (33.0 - 37.0 G/DL) 32.9 L Assessment/Plan Assessment/Plan Imp: Septic episode following cysto, laser litho of bladder stone and change of R ureteral stent Plan: Agree with present abx. Adjust pending culture result from 10/03/16 [address]arton in place as it is very difficult to insert due to lower extremity contractures Consult Acknowledgment - Thank you for your consult request.
[2016-10-05 08:23] LABS: ABSOLUTE BASOPHIL COUNT 0 /CUMM (0.0-0.2); ABSOLUTE EOSINOPHIL COUNT 0 /CUMM (0.0-0.7); ABSOLUTE GRANULOCYTE CT 8.6 /CUMM (1.4-6.5); ABSOLUTE LYMPH COUNT 0.7 /CUMM (1.2-3.4); ABSOLUTE MONOCYTE COUNT 0.8 /CUMM (0.10-0.60); BASOPHIL % 0.4 % (0.0-2.0); EOSINOPHIL % 0.1 % (0-5); MEAN CORPUSCULAR HGB 27.9 PG (27.0-31.0); MEAN CORPUSCULAR HGB CONC 32.9 G/DL (33.0-37.0); MEAN CORPUSCULAR VOLUME 84.9 FL (81.0-99.0); MEAN PLATELET VOLUME 7.8 FL (7.4-10.4); RBC DISTRIBUTION WIDTH 14.3 % (11.5-14.5); RED BLOOD CELL CT 3.75 /CUMM (4.20-5.40); WHITE BLOOD CELL COUNT 10.2 /CUMM (4.8-10.8)
[2016-10-05 08:29] LABS: PT 18.3 SEC (9.4-12.5)
[2016-10-05 08:54] LABS: HEMATOCRIT 31.9 % (37-47)
[2016-10-05 08:56] LABS: GRANULOCYTE % 84.2 % (42.2-75.2); PLATELET COUNT 193 /CUMM (130-400)
--- NOTE | 2016-10-05 11:07 | PN- Housestaff ---
Subjective Follow-up For: Sepsis of urological origin Pyelonephritis Subjective: Patient is seen and examined at bedside. She reports feeling much better compared to yesterday and denies any episodes of nausea, vomiting, chills, abdominal pain or dysuria, and shortness of breath, chest pain, palpitation, dizziness, any new acute focal neurological deficit No acute overnight event reported by nursing staff. Review of Systems Constitutional: Reports: no symptoms. Objective Last 24 Hrs of Vital Signs/I&O Vital Signs Date Time Temp Pulse Resp B/P Pulse O2 O2 Flow FiO2 Ox Delivery Rate 10/05 1413 97.9 102 20 115/77 94 Nasal 4.0L Cannula 10/05 0735 98.7 111 20 130/78 96 Nasal 4.0L Cannula 10/05 0450 104 10/05 0000 Nasal 4.0L Cannula 10/04 2231 97.9 128 20 132/90 94 Nasal 4.0L Cannula 10/04 2205 Nasal 4.0L Cannula 10/04 1914 99.2 102 18 128/52 95 Nasal 4.0L Cannula 10/04 1759 100.0 10/04 1654 100.4 111 18 100/59 95 Nasal 4.0L Cannula 10/04 1616 101.1 113 22 97/54 96 Nasal 5.0L Cannula 10/04 1525 101.6 10/04 1506 101.6 125 20 100/74 94 Intake & Output 10/05 1600 10/05 0800 10/05 0000 Intake Total 1280 2250 Output Total 450 600 450 Balance -656 915 6615 Intake, IV 800 2150 Intake, Oral 480 100 Number 1 Bowel Movements Output, Urine 450 600 450 Patient 83.915 kg Weight Physical Exam General Appearance: Alert, Oriented X3, Cooperative, No Acute Distress Skin: No Significant Lesion HEENT: PERRLA, Mucous Membr. moist/pink Neck: Supple, No JVD, No thryomegaly Lymphatic: Cervical nl Cardiovascular: Regular Rate, Normal S1, Normal S2, No Murmurs Lungs: Clear to Auscultation, Normal Air Movement Abdomen: Normal Bowel Sounds, Soft, No Tenderness Neurological: Normal Speech, SIGNIFICANTLY DECREASED IN LOWER EXTREMITY STRENGTH (CHRONIC) Extremities: No Tenderness/Swelling Current Medications: Current Medications Sig/Jonathan Start time Last Medication Dose Route Stop Time Status Admin Acetaminophen 650 MG Q6P PRN 03/28 2045 AC PO Acetaminophen 0 .STK-MED ONE 10/04 1528 DC IV Acetaminophen 1,000 MG ONCE ONE 10/04 1500 DC 10/04 IV 10/04 1501 1525 Baclofen 20 MG TID 10/04 2200 AC 10/05 PO 0834 Bisacodyl 10 MG ONCE ONE 10/04 2245 DC 10/05 LA 10/04 2246 0108 Carbamazepine 200 MG 4 TIMES/DAY 10/04 2200 AC 10/05 PO 1405 Ceftazidime 0 .STK-MED ONE 10/04 2102 DC .ROUTE Ceftazidime 1,000 MG IQ8 10/04 2045 AC 10/05 IV 0830 Ceftriaxone Sodium 1,000 MG ONCE ONE 10/04 1745 DC 10/04 IV 10/04 1746 1732 Ceftriaxone Sodium 0 .STK-MED ONE 10/04 1728 DC .ROUTE Cyanocobalamin 500 MCG DAILY 10/05 1000 AC 10/05 PO 0834 Diphenhydramine HCl 25 MG Q6P PRN 10/04 204 AC IV Docusate Sodium 100 MG TID 10/04 2200 AC 10/05 PO 0834 Fluoxetine HCl 40 MG DAILY 10/05 1000 AC 10/05 PO 0834 Hydromorphone HCl 0.5 MG Q4P PRN 10/04 2045 AC IV Ondansetron HCl 4 MG Q6P PRN 10/04 204 AC IV Oxycodone HCl 5 MG Q6H PRN 10/04 2045 AC PO Patient Medication 1 ED .STK-MED ONE 10/05 1356 DC Teaching ED 10/05 1357 Senna/Docusate Sodium 1 TAB BID PRN 10/04 2200 AC PO Sodium Chloride 1,000 ML .Q10H 10/04 2245 AC 10/05 IV 10/05 1844 1406 Sodium Chloride 1,000 ML .Q6H40M 10/04 2045 DC 10/04 IV 2228 Sodium Chloride 1,000 ML BOLUS ONE 10/04 1845 DC 10/04 IV 10/04 2044 1913 Sodium Chloride 1,000 ML BOLUS ONE 10/04 1745 DC 10/04 IV 10/04 1844 1732 Sodium Chloride 1,000 ML BOLUS ONE 10/04 1500 DC 10/04 IV 10/04 1659 1525 Tizanidine HCl 2 MG Q8 10/04 2200 AC 10/05 PO 1405 Last 24 Hrs of Lab/Sae Results Last 24 Hrs of Labs/Mics: Laboratory Tests 10/05/16 0650: Anion Gap 7, Estimated GFR > 60, BUN/Creatinine Ratio 18.8, PT 18.3 H, INR 1.75 H, CBC w Diff NO MAN DIFF REQ, RBC 3.75 L, MCV 84.9, MCH 27.9, RDW 14.3, MPV 7.8, Gran % 84.2 H, Lymphocytes % 7.0 L, Monocytes % 8.3, Eosinophils % 0.1, Basophils % 0.4, Absolute Granulocytes 8.6 H, Absolute Lymphocytes 0.7 L, Absolute Monocytes 0.8 H, Absolute Eosinophils 0, Absolute Basophils 0, PUBS MCHC 32.9 L 10/04/16 2315: PT 19.9 H, INR 1.91 H 10/04/16 1557: Urinalysis MOD H, Urine Color BROWN H, Urine Clarity TURBD H, Urine pH 6.0, Ur Specific [place] >= 1.030, Urine Protein >=300 H, Urine Ketones TRACE H, Urine Nitrite POS H, Urine Bilirubin NEG@ICTO, Urine Urobilinogen 0.2, Ur Leukocyte Esterase MOD H, Ur Microscopic SEDIMENT EXAMINED, Urine RBC 5-10 H, Urine WBC > 75 H, Ur Epithelial Cells FEW, Urine Bacteria MANY H, Urine Hemoglobin LARGE H, Urine Glucose NEG 10/04/16 1520: Anion Gap 11, Estimated GFR > 60, BUN/Creatinine Ratio 15.0, Glucose 151 H, Lactic Acid 1.3, Calcium 8.3 L, Total Bilirubin 0.6, AST 41 H, ALT 34, Alkaline Phosphatase 140 H, Total Protein 6.1 L, Albumin 3.4 L, Globulin 2.7, Albumin/Globulin Ratio 1.3, CBC w Diff NO MAN DIFF REQ, RBC 4.48, MCV 84.3, MCH 27.7, RDW 14.3, MPV 7.4, Gran % 89.6 H, Lymphocytes % 3.5 L, Monocytes % 6.5, Eosinophils % 0.1, Basophils % 0.3, Absolute Granulocytes 14.3 H, Absolute Lymphocytes 0.6 L, Absolute Monocytes 1.0 H, Absolute Eosinophils 0, Absolute Basophils 0.1, PUBS MCHC 32.9 L Microbiology 10/05 1354 STOOL: Clostridium difficile Toxin A & B - ORD 10/04 1557 URINE ROUT: Urine Culture - RES GRAM NEGATIVE RODS 10/04 1525 BLOOD: Blood Culture - RES 10/04 1520 BLOOD: Blood Culture - RES Assessment/Plan Assessment: This is a 61-year-old very pleasant lady with a significant history of MS is bedbound, will history of previous UTIs and nephrolithiasis presents with signs of symptoms suggestive of pyelonephritis in the setting of s/p urological procedure of stent placement. Assessment and plan #Sepsis of urological origin Patient met criteria with leukocytosis,Tmax of 101.6, tachycardic, and a urine source of infection. Patient received adequate hydration and was started on appropriate antibiotic with ceftazidime in the setting of previous Pseudomonas urine isolate. #Pyelonephritis Patient presented with typical symptoms of fever, nausea, vomiting right.Patient does have a history of UTIs with nephrolithiasis the predisposes her to possible urinary tract infection. Most likely recent episode of pyelonephritis is secondary to the ureter stent placement was done at same day. Day 2 of IV antibiotic with ceftaz, patient will require a total 14 day course treatment. UA culture obtained today is remarkable for gram-negative rods Will await complete isolate and susceptibility. Most likely patient will be discharged with Cipro. Problem List: 1. Pyelonephritis Pain Ratin Pain Location: none Pain Goal: Remain pain free Pain Plan: Per pain pathway Tomorrow's Labs & Rationales: BEP-acute pyelonephritis CBC-trending infection
--- NOTE | 2016-10-05 13:07 | PN- Att Addend ---
Attending Addendum Attending Brief Note Patient seen and examined, denies any complaints. Fevers have come down. White blood cell count has improved. Patient still has a Pratt catheter. Vital Signs Date Time Temp Pulse Resp B/P Pulse O2 O2 Flow FiO2 Ox Delivery Rate 10/05 0735 98.7 111 20 130/78 96 Nasal 4.0L Cannula 10/05 0450 104 10/05 0000 Nasal 4.0L Cannula 10/04 2231 97.9 128 20 132/90 94 Nasal 4.0L Cannula 10/04 2205 Nasal 4.0L Cannula 10/04 1914 99.2 102 18 128/52 95 Nasal 4.0L Cannula 10/04 1759 100.0 10/04 1654 100.4 111 18 100/59 95 Nasal 4.0L Cannula 10/04 1616 101.1 113 22 97/54 96 Nasal 5.0L Cannula 10/04 1525 101.6 10/04 1506 101.6 125 20 100/74 94 10/04 1304 101.1 129 28 125/69 89 Nasal 5.0L Cannula on exam; aox3, nad. cv; s1,s2, rrr resp; clear abd; soft, nt, bs+ ext; no edema. Laboratory Tests 10/05 10/04 0650 2315 Chemistry Sodium (137 - 145 mmol/L) 137 Potassium (3.5 - 5.1 mmol/L) 3.3 L Chloride (98 - 107 mmol/L) 106 Carbon Dioxide (22 - 30 mmol/L) 24 Anion Gap (5 - 16) 7 BUN (7 - 17 mg/dL) 15 Creatinine (0.5 - 1.0 mg/dL) 0.8 Estimated GFR (>60 ml/min) > 60 BUN/Creatinine Ratio (7 - 25 %) 18.8 Coagulation PT (9.4 - 12.5 SEC) 18.3 H 19.9 H INR (0.90 - 1.19) 1.75 H 1.91 H Hematology CBC w Diff NO MAN DIFF REQ WBC (4.8 - 10.8 /CUMM) 10.2 RBC (4.20 - 5.40 /CUMM) 3.75 L Hgb (12.0 - 16.0 G/DL) 10.5 L Hct (37 - 47 %) 31.9 L MCV (81.0 - 99.0 FL) 84.9 MCH (27.0 - 31.0 PG) 27.9 RDW (11.5 - 14.5 %) 14.3 Plt Count (130 - 400 /CUMM) 193 MPV (7.4 - 10.4 FL) 7.8 Gran % (42.2 - 75.2 %) 84.2 H Lymphocytes % (20.5 - 51.1 %) 7.0 L Monocytes % (1.7 - 9.3 %) 8.3 Eosinophils % (0 - 5 %) 0.1 Basophils % (0.0 - 2.0 %) 0.4 Absolute Granulocytes (1.4 - 6.5 /CUMM) 8.6 H Absolute Lymphocytes (1.2 - 3.4 /CUMM) 0.7 L Absolute Monocytes (0.10 - 0.60 /CUMM) 0.8 H Absolute Eosinophils (0.0 - 0.7 /CUMM) 0 Absolute Basophils (0.0 - 0.2 /CUMM) 0 PUBS MCHC (33.0 - 37.0 G/DL) 32.9 L 10/04 10/04 1557 1520 Chemistry Sodium (137 - 145 mmol/L) 137 Potassium (3.5 - 5.1 mmol/L) 3.2 L Chloride (98 - 107 mmol/L) 102 Carbon Dioxide (22 - 30 mmol/L) 24 Anion Gap (5 - 16) 11 BUN (7 - 17 mg/dL) 12 Creatinine (0.5 - 1.0 mg/dL) 0.8 Estimated GFR (>60 ml/min) > 60 BUN/Creatinine Ratio (7 - 25 %) 15.0 Glucose (65 - 99 mg/dL) 151 H Lactic Acid (0.7 - 2.1 mmol/L) 1.3 Calcium (8.4 - 10.2 mg/dL) 8.3 L Total Bilirubin (0.2 - 1.3 mg/dL) 0.6 AST (14 - 36 U/L) 41 H ALT (9 - 52 U/L) 34 Alkaline Phosphatase (<127 U/L) 140 H Total Protein (6.3 - 8.2 g/dL) 6.1 L Albumin (3.5 - 5.0 g/dL) 3.4 L Globulin (1.9 - 4.2 gm/dL) 2.7 Albumin/Globulin Ratio (1.1 - 2.2 %) 1.3 Hematology CBC w Diff NO MAN DIFF REQ WBC (4.8 - 10.8 /CUMM) 15.9 H RBC (4.20 - 5.40 /CUMM) 4.48 Hgb (12.0 - 16.0 G/DL) 12.4 Hct (37 - 47 %) 37.8 MCV (81.0 - 99.0 FL) 84.3 MCH (27.0 - 31.0 PG) 27.7 RDW (11.5 - 14.5 %) 14.3 Plt Count (130 - 400 /CUMM) 262 MPV (7.4 - 10.4 FL) 7.4 Gran % (42.2 - 75.2 %) 89.6 H Lymphocytes % (20.5 - 51.1 %) 3.5 L Monocytes % (1.7 - 9.3 %) 6.5 Eosinophils % (0 - 5 %) 0.1 Basophils % (0.0 - 2.0 %) 0.3 Absolute Granulocytes (1.4 - 6.5 /CUMM) 14.3 H Absolute Lymphocytes (1.2 - 3.4 /CUMM) 0.6 L Absolute Monocytes (0.10 - 0.60 /CUMM) 1.0 H Absolute Eosinophils (0.0 - 0.7 /CUMM) 0 Absolute Basophils (0.0 - 0.2 /CUMM) 0.1 PUBS MCHC (33.0 - 37.0 G/DL) 32.9 L Urines Urinalysis MOD H Urine Color (YEL,AMB,STR) BROWN H Urine Clarity (CLEAR) TURBD H Urine pH (5.0 - 8.0) 6.0 Ur Specific [place] (1.001 - 1.035) >= 1.030 Urine Protein (NEG,<30 MG/DL) >=300 H Urine Ketones (NEG) TRACE H Urine Nitrite (NEG) POS H Urine Bilirubin (NEG) NEG@ICTO Urine Urobilinogen (0.1 - 1.0 EU/dl) 0.2 Ur Leukocyte Esterase (NEG) MOD H Ur Microscopic SEDIMENT EXAMINED Urine RBC (0 - 5 /HPF) 5-10 H Urine WBC (0 - 2 /HPF) > 75 H Ur Epithelial Cells (NONE,FEW) FEW Urine Bacteria (NEG/NONE) MANY H Urine Hemoglobin (NEG) LARGE H Urine Glucose (N MG/DL) NEG A/P; 61-year-old female with past medical history significant for multiple sclerosis who is bedbound, history of pulmonary resume on Coumadin for the coagulation, multiple UTIs, history of left-sided hydroureteronephrosis as well as right-sided hydronephrosis status post recent stent placement in the right ureter as well as lithotripsy of the right UPJ stone who is now admitted with sepsis likely secondary to UTI and pyelonephritis post procedure. Currently treated with ceftaz. Urine culture from October 03 growing Pseudomonas. We'll adjust antibiotics once we have the results back from the blood culture. Fever has resolved as of this morning and leukocytosis is improving. Patient still has a Pratt catheter and urologist recommends to keep the Pratt in. At this point we'll continue current antibiotics. Please stop IV fluids. Please replete potassium. Continue other current medications. DVT px. We will dose Coumadin according to INR. D/W patient's at bedside.
[2016-10-05 14:13] VITALS: BP 115/77
[2016-10-05 22:33] VITALS: BP 120/72
--- NOTE | 2016-10-06 00:49 | NUR ---
PATIENT ALERT. VITAL SIGNS STABLE. DENIES CHEST PAIN. + PULSES TURNED AND REPOSITIONED. SARIMENTO CARE GIVEN. NO DISTRESS NOTED. PATIENT RESTING COMFORTABLY AT THIS TIME. WILL CONTINUE TO MONITOR
[2016-10-06 07:01] VITALS: BP 120/62
--- NOTE | 2016-10-06 08:03 | PN- Housestaff ---
ALBERTO ASTORGA,NANCY 10/06/16 0803: Subjective Follow-up For: UTI Subjective: Patient is seen and examined at bedside. Patient does not endorse any acute complaints and states that she is feeling much better with no reported incidence of nausea vomiting or fevers. Patient also denies any chest pain, dizziness, increased shortness of breath, palpitation, abdominal pain or dysuria. No acute overnight event reported by nursing staff. She is looking forward to discharge. Review of Systems Constitutional: Reports: no symptoms. Objective Last 24 Hrs of Vital Signs/I&O Vital Signs Date Time Temp Pulse Resp B/P Pulse O2 O2 Flow FiO2 Ox Delivery Rate 10/06 0800 95 Nasal 4.0L Cannula 10/06 0701 98.0 91 20 120/62 96 Nasal 4.0L Cannula 10/06 0000 Nasal 4.0L Cannula 10/05 2233 98.6 97 20 120/72 96 Nasal Cannula 10/05 1600 Nasal 4.0L Cannula 10/05 1413 97.9 102 20 115/77 94 Nasal 4.0L Cannula Intake & Output 10/06 1600 10/06 0800 10/06 0000 Intake Total 240 800 Output Total 600 700 Balance -360 100 Intake, Oral 240 800 Number 1 2 Bowel Movements Output, Urine 600 700 Physical Exam General Appearance: Alert, Oriented X3, Cooperative Other Physical Findings: skin: No Significant Lesion HEENT: PERRLA, Mucous Membr. moist/pink Neck: Supple, No JVD, No thryomegaly Lymphatic: Cervical nl Cardiovascular: Regular Rate, Normal S1, Normal S2, No Murmurs Lungs: Clear to Auscultation, Normal Air Movement Abdomen: Normal Bowel Sounds, Soft, No Tenderness Neurological: Normal Speech, SIGNIFICANTLY DECREASED IN LOWER EXTREMITY STRENGTH (CHRONIC) Extremities: No Tenderness/Swelling Current Medications: Current Medications Sig/Jonathan Start time Last Medication Dose Route Stop Time Status Admin Acetaminophen 650 MG Q6P PRN 10/04 2044 AC PO Baclofen 20 MG TID 10/04 2199 AC 10/06 PO 105 Carbamazepine 200 MG 4 TIMES/DAY 10/04 2199 AC 10/06 PO 1051 Ceftazidime 1,000 MG IQ8 10/04 2044 AC 10/06 IV 0857 Cyanocobalamin 500 MCG DAILY 10/05 1000 AC 10/06 PO 1052 Diphenhydramine HCl 25 MG Q6P PRN 10/04 2044 AC IV Docusate Sodium 100 MG TID 10/04 220 AC 10/06 PO 1048 Fluoxetine HCl 40 MG DAILY 10/05 1000 AC 10/06 PO 1051 Hydromorphone HCl 0.5 MG Q4P PRN 10/04 2044 AC IV Ondansetron HCl 4 MG Q6P PRN 10/04 2044 AC IV Oxycodone HCl 5 MG Q6H PRN 10/04 2044 AC PO Patient Medication 1 ED .STK-MED ONE 10/05 1356 DC Teaching ED 10/05 1357 Potassium Chloride 40 MEQ ONCE ONE 10/05 1530 DC 10/05 PO 10/05 1531 1726 Senna/Docusate Sodium 1 TAB BID PRN 10/04 2199 AC PO Sodium Chloride 1,000 ML .Q10H 10/04 2245 DC 10/05 IV 10/05 1844 1406 Tizanidine HCl 2 MG Q8 10/04 2199 AC 10/06 PO 0547 Warfarin Sodium 7.5 MG COUMADIN 1700 ONE 10/05 1700 DC 10/05 PO 10/05 1701 1726 Last 24 Hrs of Lab/Sea Results Last 24 Hrs of Labs/Mics: Laboratory Tests 10/06/16 0646: Anion Gap 6, Estimated GFR > 60, BUN/Creatinine Ratio 15.7, PT 24.7 H, INR 2.37 H, CBC w Diff NO MAN DIFF REQ, RBC 3.30 L, MCV 85.1, MCH 28.2, RDW 14.4, MPV 7.7, Gran % 71.6, Lymphocytes % 12.8 L, Monocytes % 11.2 H, Eosinophils % 4.0, Basophils % 0.4, Absolute Granulocytes 3.2, Absolute Lymphocytes 0.6 L, Absolute Monocytes 0.5, Absolute Eosinophils 0.2, Absolute Basophils 0, PUBS MCHC 33.1 Microbiology 10/06 2207 STOOL: Clostridium difficile Toxin A & B - COMP Assessment/Plan Assessment: This is a 61-year-old very pleasant lady with a significant history of MS is bedbound, will history of previous UTIs and nephrolithiasis presents with signs of symptoms suggestive of pyelonephritis in the setting of s/p urological procedure of stent placement. Assessment and plan #Pyelonephritis Marked clinical improvement with patient reporting symptomatic relief with no fevers or chills or vomiting. No leukocytosis noted. Patient is stable for discharge and will be sent home with a 12 day ciprofloxacin 500 mg twice a day antibiotic course in line with culture sensitivity of Pseudomonas in her urine. Spoke to Dr. Andersen, patient urologist who recommended Partt be removed before discharge and patient to have a phone follow-up with his office. Problem List: 1. Pyelonephritis Pain Ratin Pain Location: none Pain Goal: Remain pain free Pain Plan: Per pain pathway Tomorrow's Labs & Rationales: None-patient is being discharged TAVO MUSTAFA MD 10/06/16 1205: Attending MD Review Statement Attending Statement Attending MD Statement: examined this patient, discuss w/resident/PA/SLIP LASTER, agreed w/resident/PA/SLIP LASTER, discussed with family, reviewed EMR data (avail), discussed with nursing, discussed with case mgmt, reviewed images, amended to note Attending Assessment/Plan: Patient seen and examined, feeling overall better. Remains afebrile with leukocytosis improved. Urine culture growing Pseudomonas. It is sensitive to Cipro. We discussed with Dr. Steele and the Pratt catheter will be discontinued. Patient will be switched to Cipro to complete a total of 14 day course. Oxygen will be tapered down. We'll check room air oxygen saturations to see if she needs to go home with oxygen. Patient has been is requesting a visiting nurse. Patient will be discharged home today on oral antibiotics and will follow with primary care doctor as well as urologist as an outpatient.
[2016-10-06 08:07] LABS: ABSOLUTE BASOPHIL COUNT 0 /CUMM (0.0-0.2); ABSOLUTE EOSINOPHIL COUNT 0.2 /CUMM (0.0-0.7); ABSOLUTE GRANULOCYTE CT 3.2 /CUMM (1.4-6.5); ABSOLUTE LYMPH COUNT 0.6 /CUMM (1.2-3.4); ABSOLUTE MONOCYTE COUNT 0.5 /CUMM (0.10-0.60); BASOPHIL % 0.4 % (0.0-2.0); GRANULOCYTE % 71.6 % (42.2-75.2); HEMATOCRIT 28.1 % (37-47); MEAN CORPUSCULAR HGB 28.2 PG (27.0-31.0); MEAN CORPUSCULAR HGB CONC 33.1 G/DL (33.0-37.0); MEAN CORPUSCULAR VOLUME 85.1 FL (81.0-99.0); MEAN PLATELET VOLUME 7.7 FL (7.4-10.4); PLATELET COUNT 163 /CUMM (130-400); RBC DISTRIBUTION WIDTH 14.4 % (11.5-14.5)
[2016-10-06 08:24] LABS: WHITE BLOOD CELL COUNT 4.4 /CUMM (4.8-10.8)
[2016-10-06 08:26] LABS: PT 24.7 SEC (9.4-12.5)
[2016-10-06] MEDS ORDERED: CIPRO500 M1 PO (10:13)
--- NOTE | 2016-10-06 11:45 | Patient Discharge Instructions ---
Discharge Instructions General Discharge Information You were seen/treated for: Urinary tract infection Special Instructions: You have been given a 12 day supply of ciproflocaxin antibiotic. Please take untill all finished. Please call your primary care physcian if you develop fever ,vomiting. Please follow up with primary care physician in 1 week Please follow up wtih Dr Andersen within 1 week Acute Coronary Syndrome Inclusion Criteria At DC or during hospital stay patient has or had the following: ACS DIAGNOSIS No Discharge Core Measures Meds if any: Prescribed or Continued at Discharge Meds if any: NOT Prescribed or Continued at Discharge Congestive Heart Failure Inclusion Criteria At DC or during hospital stay patient has or had the following: CHF DIAGNOSIS No Discharge Core Measures Meds if any: Prescribed or Continued at Discharge Meds if any: NOT Prescribed or Continued at Discharge Cerebrovascular accident Inclusion Criteria At DC or during hospital stay patient has or had the following: CVA/TIA Diagnosis No Discharge Core Measures Meds if any: Prescribed or Continued at Discharge Meds if any: NOT Prescribed or Continued at Discharge Venous thromboembolism Inclusion Criteria VTE Diagnosis No VTE Type NONE VTE Confirmed by (Test) NONE Discharge Core Measures - Per Current guidelines, there needs to be overlap - treatment for the first 5 days of Warfarin therapy. - If discharged on Warfarin prior to 5 days of - overlap therapy, the patient will need to be - assessed for post discharge needs including - *Post discharge parental anticoagulation - *Warfarin and/or parental anticoagulation education - *Follow up date to check INR post discharge At least 5 days overlap therapy as Inpatient No Meds if any: Prescribed or Continued at Discharge Note: Overlap Therapy is Warfarin and Anticoagulant Meds if any: NOT Prescribed or Continued at Discharge
[2016-10-06 14:24] VITALS: BP 128/76
--- NOTE | 2016-10-11 16:00 | Discharge Summary ---
Visit Information Visit Dates Admission Date: 10/04/16 Discharge Date: 10/06/16 Hospital Course Course Attending Physician: TAVO MUSTAFA MD Primary Care Physician: SERVANDO SHOEMAKER MD Consulting Request: Consulting Specialty: Urology Hospital Course: This is a 61 yo pleasent lady with a PMH of MS not on treatment, paraparesis, bedbound, PE 4 years back on warfarin, and recurrent nephrolithiasis presents with complaint of nausea and vomiting . Patient underwent laser lithotripsy and replacement of double J stent right ureter , couple days before presenting to the ED . PT had been started on Augmentin prior to procedure and had a barton placed post procedure. After going home patient started experiemcing fevers, chills, nausea, vomiting, with no resolution of symptoms prompting her to come to ED next morning. Vitals on admission : T max 101.6, tachycardic, tachypneic,BP 125/65 drop to 97/ 54, improved with hydration. Saturating 96% on 4 L Physical Exam: A O 3, neck supple, no JVD, no lymphadenopathy, mucosa dry, paraparesis, bilateral upper extremity increased tone , power 3+/ 5, cranial nerves intact, squint on the right side. no dependent edema, CVS: S1-S2, RRR. RS : Diffuse wheezing bilaterally. Abdomen: Soft, NT, ND, bowel sounds present, no CVA tenderness. No obvious skin inflammation or rash. Labs: WBC 15.9, neutrophils 89%, potassium 3.9, calcium 8.3, lactate 1.3, AST 41 , alkaline phosphatase 140, albumin 3.4, UA suggestive of UTI CXR:No acute intrathoracic disease. Chronically elevated right hemidiaphragm with associated right basilar atelectasis. CT abdomen and pelvis without IV contrast: 1. Fragmentation of right pelvic calculus now with multiple fragments an indwelling double-J ureteral stent which appears to be in good position. 2. Massive fecal impaction with marked distention of rectum. 3. One pulmonary nodule has been stable for at least 2 years. 4. Small ground-glass opacity as described above. Patient was then admitted to general medicine for right pyelonephritis and started on IV Ceftazidime.The following issues were adressed during hospital stay: # right pyelonephritis s/p laser lithotripsy and replacement of double J stent right ureter. Patient improved on Ceftaz IV therapy with WBC normalizing and no reports of nausea/ vomiting or CVA tenderness. Urine culture was remrkable for Pseudomans which was susceptible to ceftaz and Cipro. Urology was also consulted and reccomended conitnuation of ABX therapy and removal of barton during discharge day. Pt was stable at discharge day and was sent home with ciprofloxacin 500 mg bid for 12 days to complete a 14 day course Tx for pyelonephritis. #Sepsis Of urological source as evident by positive urine culture. Patient reposnded to fluid resuscitation with normalization of blood pressure and lactic acid level # patient had massive fecal impaction on CT findings: Patient gets once weekly bowel movement according to . Dulcolax supp 10 mg was administered with a bowel regimen of colace and senna. Pt had subsequent bowel movements and no surgical consult was warranted. # patient on warfarin for history of pulmonary embolism: INR based dosing was implemented. Allergies: Coded Allergies: No Known Allergies (09/27/16) Disposition Summary Disposition Principal Diagnosis: Pyelonephritis Additional Diagnosis: Sepsis Discharge Disposition: home health services Discharge Instructions General Discharge Information Code Status: Full Code Patient's Diet: regular Patient's Activity: Bed bound Follow-Up Instructions/Appts: Patient is to f/u with Urology within 1 week Patient is to follow up with her PCP within 1 week Medications at Discharge Discharge Medications: Stop taking the following medications: Amoxicillin/Potassium Clav (Amox-Clav 500-125 MG Tablet) 500 MG-125 MG TABLET ORAL TWICE DAILY Qty = 14 Continue taking these medications: Baclofen (Baclofen) 10 MG TABLET 2 Tablet ORAL THREE TIMES DAILY Comments: Last Taken: 10/06/16 Time: 1045 Carbamazepine (Tegretol) 200 MG TABLET 1 Tablet ORAL 4 TIMES A DAY Comments: Last Taken: 10/06/16 Time: 1045 Fluoxetine HCl (Fluoxetine HCl) 40 MG CAPSULE 1 Capsule ORAL Every Morning Comments: Last Taken: 10/06/16 Time: 1045 Cyanocobalamin (Vitamin B-12) (Vitamin B-12) 500 MCG TABLET 1 Tablet ORAL DAILY Comments: Last Taken: 10/06/16 Time: 1045 Cholecalciferol (Vitamin D3) (Vitamin D3) 5,000 UNIT CAPSULE 1 Capsule ORAL DAILY Comments: NOT GIVEN IN HOSPITAL Tizanidine HCl (Zanaflex) 2 MG CAPSULE 1 Tablet ORAL EVERY 8 HOURS Qty = 270 Comments: Last Taken: 10/06/16 Time: 600 AM Warfarin Sodium (Warfarin Sodium) 5 MG TABLET 1-2 Tablet ORAL 5 PM Qty = 180 Comments: Last Taken: 10/05/16 Time: 530 PM Docusate Sodium (Colace) 100 MG CAPSULE 1 Capsule ORAL THREE TIMES DAILY Comments: Last Taken: 10/06/16 Time: 1045 Sennosides (Senna) 8.6 MG TABLET 2 Tablet ORAL TWICE DAILY Comments: NOT GIVEN IN HOSPITAL Start taking the following new medications: Ciprofloxacin HCl (Cipro) 500 MG TABLET 1 Tablet ORAL TWICE DAILY Qty = 24 No Refills Comments: NOT GIVEN IN HOSPITAL Copies To: NAVID ASTORGA,SERVANDO Rojas
== END 2016-10-06 15:10 | disposition home health service (06) | DRG 872 ==
LOC: ENRESERVDT → ENRESERVTM → ERH 13:02 → ERHI 18:17 → 2NB 18:17 → ENPENDDIS 18:17 → 2NB 22:05
PROVIDERS: Emergency Medicine; Internal Medicine Hematology & Oncology; Student in an Organized Health Care Education/Training Program; ADMIT Internal Medicine
DX: A41.9 Sepsis, unspecified organism (principal); N13.30 Unspecified hydronephrosis; G35 Multiple sclerosis; N10 Acute pyelonephritis; N39.0 Urinary tract infection, site not specified; Z86.711 Personal history of pulmonary embolism; Z79.01 Long term (current) use of anticoagulants; K56.41 Fecal impaction; F32.9 Major depressive disorder, single episode, unspecified
CPT/HCPCS: 2NSBP; 36415; 74176; 81001; 82436; 87040; 87086; 96361; 96374; 96375; 99291; J0131; J0696; J0713; J2405

== ENCOUNTER → 2018-01-01 | Day surgery (SDC) | payer OTHER, MEDICARE ==
[~2018-01-01] MED LIST changes: +AMOX-CLAV 500-1 EACH PO; +CIPRO500 M1 PO; +COLACE100 M1 PO; +DOCUSATE CALCI240 MG PO; +ENOXAPARIN60 MG/0.6 SC; +SENNA PLUS TAB1 EACH PO; +SENNA8.6 M3 PO; +VITAMIN B-121000 MC3 PO; +VITAMIN D31000 UNI1 PO; +WARFARIN SODIUM5 M1 PO; +ZANAFLEX2 M2 PO
[2018-01-01 08:56] LABS: PT 12.4 SEC (9.4-12.5)
--- NOTE | 2018-01-01 14:36 | Operative Report ---
Operative/Inv Procedure Report Surgery Date: 01/01/18 Name of Procedure: Cystoscopy and exchange of right double-J ureteral stent Pre-Operative Diagnosis: Right renal calculi with obstruction Post-Operative Diagnosis: Same Estimated Blood Loss: scant Surgeon/Psychologist Social: Ganesh ASTORGA,Myles Gallo Anesthesia: laryngeal mask airway Drains: 26 cm 6 [place] right double-J ureteral stent, 18 [place] nikolski tip Pratt catheter Specimens: Urine culture Complications: None Condition: Stable Operative Indication: Right renal calculi causing obstruction and patient not a candidate for definitive therapy of her stones Operative/Procedure Note Note: The patient was taken to the cystoscopy room and identified. She was placed in supine position on the operating table. Timeout was executed appropriately with the patient awake. Gen. anesthesia was induced via LMA. She was then placed in dorsolithotomy position. This was extremely difficult due to her lower extremity contractures. Care was taken to pad the lower extremities to avoid any pressure sores. Eventually she was placed in the dorsal lithotomy position and prepped and draped in usual fashion for cystoscopy. 22 [place] cystoscope sheath was placed into the bladder. Cystoscopy was performed. The bladder was mildly inflamed. The urine was quite cloudy and was collected and sent for culture. The right ureteral stent was visualized both fluoroscopically and by direct vision. The distal end of the stent was grasped and pulled out to the external urethral meatus. A guidewire was placed through the stent and the stent was removed leaving guidewire in place. The cystoscope was then backloaded onto the guidewire. Open-ended catheter was placed over the wire which was removed. Some contrast was injected to outline the right renal collecting system. At this point the guidewire was placed back through the open -ended catheter which was removed. Under visual fluoroscopic control a 26 cm 6 [place] right double-J ureteral stent was placed over the wire. The wire was removed and fluoroscopy confirmed the proximal end of the stent coiled in an upper pole calyx and the distal end coiled in the bladder. The urine draining through the stent was somewhat cloudy. Therefore was decided to leave a Pratt catheter in place. An 18 [place] Pratt catheter was placed in the bladder over a guidewire which had been placed cystoscopically. Findings: Cloudy urine, multiple right renal calculi Discharge Disposition: PACU
--- NOTE | 2018-01-02 17:40 | RADIOLOGY REPORT ---
EXAMINATION: XR ABDOMEN CLINICAL INDICATION: Right stent removal, ureteroscopy, retrograde and stent insertion in OR. COMPARISON: CT abdomen and pelvis 09/26/2016 TECHNIQUE: 13 fluoroscopic images were obtained in the OR during the above described urologic procedure. Fluoroscopy time was 22 seconds. FINDINGS: Fluoroscopic images demonstrate a right ureteral stent in place. There is subsequent ureteroscopy with contrast injection. No clear contrast extravasation is visualized. Subsequent images demonstrate placement of a new double-J ureteral stent with the proximal and coiled in the renal pelvis and the distal end projecting over the expected location of the bladder. IMPRESSION: Fluoroscopy was provided in the OR. Please refer to operative report for full procedure details.
== END ==
LOC: STS 00:48
PROVIDERS: Urology
DX: N20.0 Calculus of kidney (principal); N32.89 Other specified disorders of bladder; G35 Multiple sclerosis; N39.0 Urinary tract infection, site not specified
CPT/HCPCS: 36415; 74018; 87086; 93005; 93010; C2617; J0690; J0713; J2250; J2405